=== PATIENT | female | born 1995 | race Caucasian/White ===

== ENCOUNTER 2021-07-17 07:55 | Emergency (ER) | payer MEDICAID ==
[~2021-07-17] VITALS: Ht 154.9 cm; Wt 86.2 kg
[2021-07-17 08:05] VITALS: BP 122/75
[2021-07-17] MEDS ORDERED: PRED20TA5 PO (09:25)
--- NOTE | 2021-07-17 09:42 | NUR ---
No nursing interventions provided
[2021-07-17 09:43] VITALS: BP 122/75
--- NOTE | 2021-07-17 09:43 | NUR ---
Patient discharged with v/s stable. Written and verbal after care instructions about asthma and viral illness given and explained. Patient alert, oriented and verbalized understanding of instructions. Ambulatory with steady gait. All questions addressed prior to discharge. ID band removed. Patient advised to follow up with PMD. Rx of predninose given. Patient educated on indication of medication including possible reaction and side effects. Opportunity to ask questions provided and answered.
== END 2021-07-17 09:43 | disposition home or self-care (01) ==
LOC: MED 07:55
DX: B34.9 Viral infection, unspecified (principal); Z20.822 Contact with and (suspected) exposure to COVID-19; J45.909 Unspecified asthma, uncomplicated
CPT/HCPCS: 99283; U0003

== ENCOUNTER 2023-03-16 17:27 | Emergency (ER) | payer MEDICAID, OTHER ==
[~2023-03-16] VITALS: Ht 154.9 cm; Wt 93.0 kg
[~2023-03-16 17:27] MED LIST: PRED20TA5 PO
[2023-03-16 18:06] VITALS: BP 131/82; PULSE 73; RESP 20; TEMP 98; O2SAT 97
[2023-03-16] MEDS ORDERED: LIDOCAINE MPF 1% 10 MG/ML VIAL INJ ONE (19:00)
[2023-03-16] MEDS ORDERED: IBUP-2213 PO (19:41)
[2023-03-16 20:08] VITALS: BP 131/82; PULSE 73; RESP 20; TEMP 98; O2SAT 97
== END 2023-03-16 20:08 | disposition home or self-care (01) ==
LOC: MED 17:27
DX: N75.0 Cyst of Bartholin's gland (principal); Z79.899 Other long term (current) drug therapy
CPT/HCPCS: 56405; 99284; J2001